=== PATIENT | male | born 1950 | race Two or more races ===

== ENCOUNTER → 2017-01-02 | Outpatient (CLI) | payer MEDICARE, OTHER | END | disposition home or self-care (01) | LOC: RADPV 12:14 | PROVIDERS: ATTEND Pediatrics | DX: M79.2 Neuralgia and neuritis, unspecified (principal); M77.31 Calcaneal spur, right foot ==

== ENCOUNTER → 2020-05-31 | Outpatient (CLI) | payer MEDICARE, OTHER | END | disposition home or self-care (01) | LOC: RADPV 10:18 | PROVIDERS: ATTEND Pediatrics | DX: M15.9 Polyosteoarthritis, unspecified (principal); M67.441 Ganglion, right hand | CPT/HCPCS: 73130-TC ==

== ENCOUNTER 2022-06-16 23:20 | Emergency (ER) | payer MEDICARE, OTHER ==
[~2022-06-16] VITALS: Ht 172.7 cm; Wt 81.0 kg
[2022-06-16 23:23] VITALS: BP 117/72
[2022-06-16] MEDS ORDERED: AMOX1TAB15 PO (23:50)
[2022-06-17 00:35] LABS: COVID AG,FIA SOURCE NASOPHARYNGEAL
[2022-06-17 00:47] LABS: RAPID GROUP A STREP NEGATIVE (NEGATIVE)
[2022-06-17 00:55] LABS: INFLUENZA TYPE A NEGATIVE FOR TYPE A (NEGATIVE); INFLUENZA TYPE B NEGATIVE FOR TYPE B (NEGATIVE)
== END 2022-06-17 01:31 | disposition home or self-care (01) ==
LOC: EMS 23:20
DX: J02.9 Acute pharyngitis, unspecified (principal); Z20.822 Contact with and (suspected) exposure to COVID-19
CPT/HCPCS: 87430; 87804; 99283